=== PATIENT | male | born 1990 | race Caucasian/White ===

== ENCOUNTER 2025-05-05 22:30 | Emergency (ER) | payer MEDICAID ==
[~2025-05-05] VITALS: Ht 167.6 cm; Wt 70.0 kg
[2025-05-05 22:52] VITALS: BP 134/90; PULSE 117; RESP 20; TEMP 37; O2SAT 99
[2025-05-05] MEDS ORDERED: ACETAMINOPHEN 500MG TABLET PO NR (23:15)
== END 2025-05-05 23:55 | disposition left against medical advice (07) ==
LOC: ER 22:30
DX: F10.129 Alcohol abuse with intoxication, unspecified (principal); E11.9 Type 2 diabetes mellitus without complications; F20.9 Schizophrenia, unspecified; Y90.9 Presence of alcohol in blood, level not specified
CPT/HCPCS: 99283

== ENCOUNTER 2025-06-19 11:51 | Emergency (ER) | payer MEDICAID ==
[~2025-06-19] VITALS: Ht 172.7 cm; Wt 84.0 kg
[2025-06-19 11:59] VITALS: O2SAT 98
[2025-06-19 12:15] VITALS: TEMP 37.1; O2SAT 98
[2025-06-19 14:07] LABS: CREATININE 0.7 mg/dL (0.6-1.3); UREA NITROGEN BLOOD 6 mg/dL (9-23)
[2025-06-19 14:14] LABS: CLARITY URINE CLEAR (CLEAR); COLOR URINE YELLOW (YELLOW); GLUCOSE URINE NEGATIVE (NEGATIVE); KETONES URINE NEGATIVE (NEGATIVE); LEUKOCYTE ESTERASE URINE NEGATIVE (NEGATIVE); NITRITE URINE NEGATIVE (NEGATIVE); OCCULT BLOOD URINE NEGATIVE (NEGATIVE); PH URINE 6.5 (4.5-8.0); PROTEIN URINE NEGATIVE (NEGATIVE); SPECIFIC GRAVITY URINE 1.003 (1.005-1.030); UROBILINOGEN URINE 0.2 E.U./dL (0.2-1.0)
[2025-06-19 14:30] LABS: ETHANOL BLOOD 401 mg/dL (<10)
[2025-06-19 14:55] VITALS: BP 129/84; PULSE 96; RESP 20; TEMP 98.7
[2025-06-19 14:56] LABS: *AMPHETAMINES SCREEN URINE NEGATIVE (NEGATIVE)
[2025-06-19 14:57] LABS: *BARBITURATES SCREEN URINE NEGATIVE (NEGATIVE); *BENZODIAZEPINES SCREEN URINE NEGATIVE (NEGATIVE); *COCAINE SCREEN URINE NEGATIVE (NEGATIVE); CANNABINOID URINE SCREEN PRESUMPTIVE POSITIVE (NEGATIVE); ECSTASY MDMA SCREEN URINE NEGATIVE (NEGATIVE); METHADONE URINE SCREEN NEGATIVE (NEGATIVE); OPIATES URINE SCREEN NEGATIVE (NEGATIVE); PHENCYCLIDINE URINE SCREEN NEGATIVE (NEGATIVE)
[2025-06-19 16:47] LABS: BASOPHILS % 0.4 % (0.0-2.0); EOSINOPHILS % 0.1 % (0.0-5.0); HEMATOCRIT. 40.8 % (42.0-52.0); HEMOGLOBIN. 13.6 g/dL (14.0-18.0); LYMPHOCYTES % 9.9 % (20.0-50.0); MEAN PLATELET VOLUME 7.7 fl (7.4-10.4); MONOCYTES % 4.9 % (2.0-8.0); NEUTROPHILS % 84.7 % (40.0-76.0); PLATELET 309 x1000/uL (130-400); RED BLOOD CELL COUNT 4.33 mill/uL (4.7-6.1); RED CELL DISTRIBUTION WIDTH 14.7 % (11.6-14.6)
== END 2025-06-19 14:34 | disposition left against medical advice (07) ==
LOC: ER 11:51
DX: F10.129 Alcohol abuse with intoxication, unspecified (principal); F20.9 Schizophrenia, unspecified; E11.9 Type 2 diabetes mellitus without complications; Z79.899 Other long term (current) drug therapy; Y90.8 Blood alcohol level of 240 mg/100 ml or more
CPT/HCPCS: 36415; 80048; 80305; 80320; 81003; 85025; 99284; G0480